=== PATIENT | male | born 1955 | race Caucasian/White ===

== ENCOUNTER → 2016-11-05 | Outpatient (CLI) | payer OTHER ==
[~2016-11-05] MED LIST: CELE200C PO; DULO30CA2 PO; LEVO100T5 PO; PREG75CA PO
[2016-11-05 10:43] LABS: HEMOGLOBIN 15.4 g/dL (13.7-18.0)
[2016-11-05 10:55] LABS: ASPARTATE AMINO TRANSFERASE 11 U/L (15-37); BLOOD UREA NITROGEN 15 mg/dL (7-18)
[2016-11-05 13:10] LABS: HIV 1&2 ANTIBODY SCREEN Nonreactive (Nonreactive); HIV-1 p24 ANTIGEN Nonreactive (Nonreactive)
[2016-11-06 09:16] LABS: HEPATITIS C VIRUS ANTIBODY Nonreactive (Nonreactive)
== END | disposition home or self-care (01) ==
LOC: STAR 09:20
PROVIDERS: ATTEND Orthopaedic Surgery Orthopaedic Surgery of the Spine
DX: Z01.818 Encounter for other preprocedural examination (principal); M54.5 Low back pain; M54.16 Radiculopathy, lumbar region; R79.1 Abnormal coagulation profile
CPT/HCPCS: 36415; 71020; 80053; 80074; 81003; 85025; 85610; 85651; 85730; 86703; 87899; 93005; G0435

== ENCOUNTER → 2019-08-10 | Outpatient (CLI) | payer BC | END | disposition home or self-care (01) | LOC: CFH 13:58 | PROVIDERS: ATTEND Nurse Practitioner | DX: M79.662 Pain in left lower leg (principal); M79.89 Other specified soft tissue disorders ==